=== PATIENT | female | born 1945 | race Caucasian/White ===

== ENCOUNTER → 2017-08-07 | Outpatient (CLI) | payer MEDICARE, OTHER | END | disposition home or self-care (01) | LOC: OLS 16:54 → LAB SHORT 16:54 | PROVIDERS: Obstetrics & Gynecology Gynecology | DX: Z91.89 Other specified personal risk factors, not elsewhere classified (principal) | CPT/HCPCS: 87624; G0123 ==

== ENCOUNTER → 2018-07-31 | Outpatient (CLI) | payer MEDICARE, OTHER | END | disposition home or self-care (01) | LOC: LAB SHORT 17:58 → LAB 17:58 | DX: R39.82 Chronic bladder pain (principal) | CPT/HCPCS: 87077; 87086; 87186 ==

== ENCOUNTER → 2018-10-30 | Outpatient (CLI) | payer MEDICARE, OTHER ==
[2018-11-01 15:07] LABS: HPV 16 Negative (Negative); HPV 18 Negative (Negative); HPV OTHER HR TYPES Negative (Negative)
== END ==
LOC: LAB 15:28 → LAB SHORT 15:28
PROVIDERS: Obstetrics & Gynecology Gynecology
DX: Z91.89 Other specified personal risk factors, not elsewhere classified (principal)
CPT/HCPCS: 87624; G0123

== ENCOUNTER 2019-04-21 11:02 | Emergency (ER) | payer MEDICARE, OTHER ==
[~2019-04-21] VITALS: Ht 157.5 cm; Wt 90.7 kg
[2019-04-21] MEDS ORDERED: GUAI600T33 PO (12:26)
[2019-04-21] MEDS ORDERED: TESSALON PERLE100 MG PO (12:26)
[2019-04-21] MEDS ORDERED: LEVO750 PO (12:26)
[2019-04-21] MEDS ORDERED: Simvastatin40 MG PO (13:16)
[2019-04-21] MEDS ORDERED: AMLODIPINE BESY10 MG PO (13:17)
[2019-04-21] MEDS ORDERED: Citalopram HBr20 MG PO (13:17)
[2019-04-21] MEDS ORDERED: HYDCHL25 PO (13:17)
[2019-04-21] MEDS ORDERED: Klor-Con 1010 MEQ PO (13:18)
[2019-04-21] MEDS ORDERED: ALPRAZOLAM0.5 M1 PO (13:18)
== END 2019-04-21 13:05 | disposition home or self-care (01) ==
LOC: ER 11:02
DX: J18.9 Pneumonia, unspecified organism (principal); Z88.8 Allergy status to other drugs, medicaments and biological substances; Z91.013 Allergy to seafood; Z79.899 Other long term (current) drug therapy
CPT/HCPCS: 71046